=== PATIENT | female | born 2000 | race Caucasian/White ===

== ENCOUNTER 2025-08-28 20:04 | Inpatient (IN) | payer OTHER, BC ==
[2025-08-28] MEDS ORDERED: Nalbuphine 10 MG/1 ML Vial IVPUSH PRN (20:31)
[2025-08-28] MEDS ORDERED: Ondansetron 4 MG/2 ML SDV IVPUSH PRN (20:31)
[2025-08-28] MEDS ORDERED: Oxytocin/0.9 % Sodium Chloride 30 UNIT/500 ML BAG IV SCH (20:45)
[2025-08-28 20:51] LABS: BASOPHILS ABSOLUTE AUTO 0.0 K/mm3 (0.0-0.2); BASOPHILS PERCENT AUTO 0.2 % (0.0-1.0); EOSINOPHILS ABSOLUTE AUTO 0.0 K/mm3 (0.0-0.4); EOSINOPHILS PERCENT AUTO 0.1 % (0.0-6.0); IMMATURE GRAN ABSOLUTE AUTO 0.09 K/mm3 (0.00-0.05); IMMATURE GRAN PERCENT AUTO 0.5 % (0.0-0.4); LYMPHOCYTES ABSOLUTE AUTO 1.0 K/mm3 (1.0-4.8); LYMPHOCYTES PERCENT AUTO 5.1 % (24.0-44.0); MEAN PLATELET VOLUME 9.8 fl (9.4-12.3); MONOCYTES ABSOLUTE AUTO 0.7 K/mm3 (0.0-0.8); MONOCYTES PERCENT AUTO 3.3 % (0.0-8.0); NEUTROPHILS ABSOLUTE AUTO 17.9 K/mm3 (1.8-7.7); NEUTROPHILS PERCENT AUTO 90.8 % (41.0-71.0); NRBC ABSOLUTE 0.00 (0.00-0.02); NRBC PERCENT 0.0 % (0.0-0.2); PLATELET COUNT,PLT 198 K/mm3 (150-400); RED BLOOD CELL COUNT 3.90 M/mm3 (4.10-5.30); WHITE BLOOD CELL COUNT,WBC 19.72 K/mm3 (3.9-11.3)
[2025-08-29] MEDS ORDERED: Lactated Ringers 1,000 ML IV SCH (01:30)
[2025-08-29] MEDS: Oxytocin/0.9 % Sodium Chloride 30 UNIT/500 ML BAG IV SCH (01:34)
[2025-08-29] MEDS: Lactated Ringers 1,000 ML IV SCH (01:34)
[2025-08-29] MEDS: Witch Hazel Medicated Pads 40/Jar TOP PRN (04:05)
[2025-08-29] MEDS: Benzocaine/Menthol 20%-0.5% Spray 78 GM Cannister TOP PRN (04:06)
[2025-08-29] MEDS: Citric Acid/Sodium Citrate Solution 30 ML Cup PO ONE (07:18)
== END 2025-08-30 12:09 | disposition home or self-care (01) | DRG 807 ==
LOC: JD.OBCHECK 20:04 → JD.OB 20:07 → JD.OBCHECK 20:37 → OBSVTOIN 08-29 02:46 → JD.OB 08-29 02:47
PROVIDERS: ADMIT Obstetrics & Gynecology; ATTEND Obstetrics & Gynecology
PROC: 10E0XZZ Delivery of Products of Conception, External Approach (ICD-10-PCS; principal; 2025-08-29)
PROC: 0HQ9XZZ Repair Perineum Skin, External Approach (ICD-10-PCS; 2025-08-29)
DX: O48.0 Post-term pregnancy (principal); Z37.0 Single live birth; O77.0 Labor and delivery complicated by meconium in amniotic fluid; O70.0 First degree perineal laceration during delivery; Z3A.41 41 weeks gestation of pregnancy
CPT/HCPCS: 36415; 59025; 59409; 85025; 86592; 86850; 86900; 86901; A9270-GY; J2003; J7120; J7999